=== PATIENT | male | born 1955 | race American Indian/Alaskan Native ===

== ENCOUNTER 2017-11-04 19:31 | Emergency (ER) | payer MEDICARE, OTHER ==
[2017-11-04 19:31] VITALS: BMI 28.3
[2017-11-04] MEDS ORDERED: Aspirin 325 mg EC Tablets PO STA (20:00)
--- NOTE | 2017-11-04 20:00 | C.PDOC ---
History Of Present Illness 62 year old male presents to the ED c/o SOB and chest tightness that started on Wednesday. Patient is speaking in full sentences. Patient denies fever, chill, nausea, vomit, diarrhea. Time Seen by Provider: 11/04/17 19:45 Chief Complaint (Nursing): Shortness Of Breath History Per: Patient History/Exam Limitations: no limitations Onset/Duration Of Symptoms: Days Current Symptoms Are (Timing): Still Present Initiating Event: Other (SOB) Quality: Tightness Current Respiratory Medications: See Home Med List Severity: Moderate Pain Scale Rating Of: 4 Associated Symptoms: Chest Pain Reports Recently: Treated By A Physician Recent travel outside of the [place]: No Additional History Per: Patient Past Medical History Reviewed: Historical Data, Nursing Documentation, Vital Signs Vital Signs: Last Vital Signs Temp 98.5 F 11/04/17 22:33 Pulse 70 11/04/17 22:33 Resp 16 11/04/17 22:33 BP 147/75 11/04/17 22:33 Pulse Ox 97 11/04/17 22:33 - Medical History PMH: CVA (3x), HTN, Hypercholesterolemia, Chronic Kidney Disease Denies: Diabetes Surgical History: Appendectomy, CABG (quadruple) - [facility] Procedures EXERCISE TRMT MUSCULOSK LOW BACK/LE W ASSIST EQUIP (10/02/16) GAIT TRAINING/AMBULAT TREATMENT USING ASSIST EQUIPMENT (10/02/16) HOME MANAGEMENT TREATMENT (10/02/16) ROM & JT MOBILITY TRMT MUSCULOSK LOW BACK/LE W ASSIST EQUIP (10/02/16) Family History: States: Unknown Family Hx - Social History Hx Tobacco Use: No Hx Alcohol Use: No Hx Substance Use: No - Immunization History Hx Tetanus Toxoid Vaccination: No Hx Influenza Vaccination: No Hx Pneumococcal Vaccination: No Review Of Systems Constitutional: Negative for: Fever, Chills Cardiovascular: Positive for: Chest Pain. Negative for: Palpitations Respiratory: Positive for: Shortness of Breath Gastrointestinal: Negative for: Nausea, Vomiting Genitourinary: Negative for: Dysuria Musculoskeletal: Negative for: Back Pain Skin: Negative for: Rash Neurological: Negative for: Weakness, Numbness Psych: Negative for: Anxiety Physical Exam - Physical Exam Appears: Non-toxic, No Acute Distress Skin: Warm, Dry Head: Normacephalic Eye(s): bilateral: Normal Inspection Oral Mucosa: Moist Neck: Supple Chest: Symmetrical Cardiovascular: Rhythm Regular Respiratory: Rales (few), Rhonchi (at the bases), No Wheezing Gastrointestinal/Abdominal: Soft, No Tenderness, No Guarding, No Rebound, Other (RLQ scar for kidney transplant scar) Back: Normal Inspection Extremity: Pedal Edema (Bilateral ), Capillary Refill (< 2 seconds), Other ( right graft with thrill and bruit) Extremity: Bilateral: Atraumatic, Normal Color And Temperature, Normal ROM Pulses: Left Dorsalis Pedis: Normal, Right Dorsalis Pedis: Normal Neurological/Psych: Oriented x3, Normal Speech Gait: Steady ED Course And Treatment - Laboratory Results Result Diagrams: 11/04/17 20:07 11/04/17 20:07 ECG: Interpreted By Me, Viewed By Me ECG Rhythm: Sinus Rhythm (71), Nonspecific Changes O2 Sat by Pulse Oximetry: 99 (ON RA) Pulse Ox Interpretation: Normal Progress Note: Plan: - VBG. - EKG. - Labs. - CXR. - Ecotrin 325 mg PO. - UA. - Blood culture Disposition Discussed With DrRafita: Alexander Cote Comment: accepted the pt on his service and took over the care at 10:48PM Doctor Will See Patient In The: Hospital Counseled Patient/Family Regarding: Studies Performed, Diagnosis - Disposition Disposition: HOSPITALIZED Disposition Time: 19:59 Condition: FAIR Forms: [facility] (South Korean) - POA Present On Arrival: Poor Glycemic Control - Clinical Impression Clinical Impression: Dyspnea, Chest pain, CHF (congestive heart failure) - Scribe Statement The provider has reviewed the documentation as recorded by the Scribe Zeb Samuel All medical record entries made by the Scribe were at my direction and personally dictated by me. I have reviewed the chart and agree that the record accurately reflects my personal performance of the history, physical exam, medical decision making, and the department course for this patient. I have also personally directed, reviewed, and agree with the discharge instructions and disposition.
[2017-11-04] MEDS ORDERED: Aspirin 325 mg EC Tablets PO ONE (20:07)
[2017-11-04 20:10] LABS: BASO # 0.1 K/uL (0.0-0.2); BASO % 0.5 % (0.0-2.0); EOS # 0.1 K/uL (0.0-0.7); EOS % 0.7 % (0.0-4.0); HEMOGLOBIN 13.1 g/dL (12.0-18.0); LYMPH # 0.8 K/uL (1.0-4.3); LYMPH % 7.7 % (20.0-40.0); MEAN CELL VOLUME 81.3 fL (80.0-94.0); MEAN CORPUSCULAR HEMOGLOBIN 27.4 pg (27.0-31.0); MEAN CORPUSCULAR HGB CONC 33.7 g/dL (33.0-37.0); MEAN PLATELET VOLUME 7.9 fL (7.2-11.7); MONO # 1.4 K/uL (0.0-0.8); MONO % 12.3 % (0.0-10.0); NEUT # 8.6 K/uL (1.8-7.0); NEUT % 78.8 % (50.0-75.0); NRBC % 0.1 % (0.0-2.0); PLATELET COUNT 151 K/uL (130-400); RBC 4.78 Mil/uL (4.40-5.90); RED CELL DISTRIBUTION WIDTH 14.5 % (11.5-14.5)
[2017-11-04 20:22] LABS: INR 1.2; PROTHROMBIN TIME 13.5 SECONDS (9.7-12.2)
[2017-11-04 20:25] LABS: ALB/GLOB RATIO 1.2 (1.0-2.1); ALT/SGPT 22 U/L (21-72); AST/SGOT 16 U/L (17-59); BLOOD UREA NITROGEN 17 mg/dL (9-20); CALCIUM 9.1 mg/dl (8.6-10.4); GFR AFRICAN-AMERICAN > 60; GFR NON-AFRICAN AMERICAN 56
[2017-11-04 20:36] LABS: B-TYPE NATRIURETIC PEPTIDE 1900 pg/mL (0-900)
[2017-11-04 20:40] LABS: VENOUS BLOOD GAS BASE EXCESS -2.1 mmol/L (0.0-2.0); VENOUS BLOOD GAS PCO2 31 mmHg (40-60); VENOUS BLOOD GAS PO2 42 mm/Hg (30-55); VENOUS BLOOD PH 7.44 (7.32-7.43)
[2017-11-04 21:12] LABS: LYMPHOCYTE 6 % (20-40); MONOCYTE 7 % (0-10); NEUTROPHIL 87 % (50-75); PLATELET ESTIMATE NORMAL (NORMAL); TOTAL CELLS COUNTED 100
[2017-11-04 22:29] LABS: URINE BILIRUBIN NEGATIVE (NEGATIVE); URINE BLOOD 1+ (NEGATIVE); URINE CLARITY Clear (Clear); URINE COLOR Yellow (YELLOW); URINE GLUCOSE (UA) NORMAL (Normal); URINE LEUKOCYTE ESTERASE 2+ Leu/uL (Negative); URINE PROTEIN 2+ mg/dL (NEGATIVE); URINE UROBILINOGEN NORMAL mg/dL (0.2-1.0)
[2017-11-04 22:34] VITALS: BP 147/75; PULSE 70; RESP 16; TEMP 98.5
[2017-11-04 22:50] VITALS: O2SAT 99
--- NOTE | 2017-11-04 23:03 | CP.PCM.HP ---
History of Present Illness - History of Present Illness History of Present Illness: COMPREHENSIVE HISTORY & PHYSICAL EXAM HPI 60-year-old admitted from the [facility] emergency room with progressive edema of the legs shortness of breath and chest pain. Routine workup in the Emergency Room was negative for acute VA. Patient has history of kidney transplant in 2013 from the living donor, son, prior to that patient was on dialysis with intact shunt. Patient also has a frequent history of CVA with right-sided weakness. Patient also has a history of CABG with 3-4 vessel bypass time and place unknown. Patient was given Lasix 40 mg twice a day as outpatient without any improvement of the edema of the legs PAST HIST. PERSONAL HIST: Smoking. N Alcohol. N Allergy N Travel_- . FAMILY HIST : ROS : Constitutional: Negative for weight change, chills, night sweats, fatigue and usage of assist device. Eyes: Negative for redness, swelling, itching, discharge, vision changes, blurry vision, double vision, glaucoma, cataracts, Ears: Negative for hearing loss, ringing, , tinnitus, vertigo Nose: Negative for rhinorrhea, stuffiness, sniffing, itching, postnasal drip, discoloration, nasal congestion and epistaxis. Throat: Negative for throat clearing, sore throat, hoarseness, difficulty swallowing and difficulty speaking. Respiratory: Negative for cough, chest tightness, sputum or phlegm, chronic cough, hemoptysis, wheezing, snoring at night, pleuritic chest pain and daytime somnolence. Cardiovascular: chest pain at rest shortness of breath with edema of the legs orthopnea and PND. Neurology: Negative for irritability, muscle weakness, numbness and tingling, seizures, tremors, migraines, slurred speech, syncope, memory loss, mood changes , recurrent headaches Gastrointestinal: Negative for difficulty swallowing, diarrhea, constipation, black stools, rectal bleeding, nausea, flatulence, reflux, poor appetite, changes in bowel habits, abdominal pain Genitourinary: Negative for frequent urination, hematuria, discharge, incontinence, urinary retention, frequent UTI, Psychiatric: Negative for depression, anxiety/panic, suicidal tendencies, Musculoskeletal: Negative for swollen joints, back pain, , neck pain, morning stiffness of joints, . Skin: Negative for rash, ulcers, itching, dry skin and pigmented lesions. P/E: Constitutional: Appears stated age and in no apparent distress. Head: Normocephalic. Ears: External ear canals patent without inflammation. Tympanic membranes intact with normal light reflex and landmark. Eyes: Pupils are central, bilaterally equal, symmetrical and reacts to light with normal movements and no icterus or pallor. Nose: External nares are patent. Mucosa is pink Mouth-Throat: Good general appearance and condition. No post-pharyngeal/oropharyngeal erythema and tonsillar hypertrophy. Good dental hygiene. Neck-Lymphatic: Neck is supple with normal ROM, no thyromegaly, lymph nodes or masses. JVD is normal with no carotid bruit. Lungs: Clear to percussion and auscultation with bilateral normal air entry. Cardiovascular: S1 and S2 are normal with no murmurs GI Exam: No hepatomegaly. Abdomen is soft and non-tender. No Organomegaly , masses or hernias are evident and bowel sounds are normal and active. Neurology: Higher function and all cranial nerves intact, with no gross sensory deficit. Superficial and deep reflexes are normal with downwards planters. No cerebellar deficit with normal gait. Weakness on the right side. Musculoskeletal: No tender spots with normal curvature of the spine with no swelling or restricted ROM of the small and large joints. Extremities: Homans sign absent. Intact pulses with pitting edema, calf tenderness or skin color changes. Skin: No rash, eruptions or abnormal skin pigmentation LAB/RADIOLOGY: ASSESMENT : Congestive heart failure, etiology to be determined, possible secondary to underlying coronary artery disease and bypass. Renal transplant functioning normal on immunosuppression. Hypertension. Plan: See orders Present on Admission - Present on Admission Any Indicators Present on Admission: No Past Patient History - Past Medical History & Family History Past Medical History?: Yes - Past Social History Smoking Status: Former Smoker - CARDIAC Hx Hypercholesterolemia: Yes Hx Hypertension: Yes - NEUROLOGICAL HX Cerebrovascular Accident: Yes - RENAL Hx Chronic Kidney Disease: Yes - MUSCULOSKELETAL/RHEUMATOLOGICAL Hx Falls: No - PSYCHIATRIC Hx Substance Use: No - SURGICAL HISTORY Hx Appendectomy: Yes Hx Coronary Artery Bypass Graft: Yes (quadruple) - ANESTHESIA Hx Anesthesia: Yes Hx Anesthesia Reactions: No Meds Allergies/Adverse Reactions: Allergies Allergy/AdvReac Type Severity Reaction Status Date / Time No Known Allergies Allergy Verified 11/04/17 19:35 Results - Vital Signs Recent Vital Signs: Last Vital Signs Temp 98.5 F 11/04/17 22:33 Pulse 70 11/04/17 22:33 Resp 16 11/04/17 22:33 BP 147/75 11/04/17 22:33 Pulse Ox 99 11/04/17 22:50 - Labs Result Diagrams: 11/04/17 20:07 11/04/17 20:07 Labs: Laboratory Results - last 24 hr 11/04/17 11/04/17 11/04/17 20:07 20:07 20:07 WBC 11.0 H RBC 4.78 Hgb 13.1 D Hct 38.9 MCV 81.3 D MCH 27.4 MCHC 33.7 RDW 14.5 Plt Count 151 MPV 7.9 Neut % (Auto) 78.8 H Lymph % (Auto) 7.7 L Morgan % (Auto) 12.3 H Eos % (Auto) 0.7 Baso % (Auto) 0.5 Neut # (Auto) 8.6 H Lymph # (Auto) 0.8 L Morgan # (Auto) 1.4 H Eos # (Auto) 0.1 Baso # (Auto) 0.1 Neutrophils % (Manual) 87 H Lymphocytes % (Manual) 6 L Monocytes % (Manual) 7 Platelet Estimate Normal PT 13.5 H INR 1.2 APTT 33 pO2 VBG pH VBG pCO2 VBG HCO3 VBG Total CO2 VBG O2 Sat (Calc) VBG Base Excess VBG Potassium Glucose Lactate Sodium 139 Potassium 4.2 Chloride 106 Carbon Dioxide 20 L Anion Gap 17 BUN 17 Creatinine 1.3 Est GFR ( Amer) > 60 Est GFR (Non-Af Amer) 56 Random Glucose 120 H Calcium 9.1 Total Bilirubin 1.9 H AST 16 L ALT 22 Alkaline Phosphatase 81 Troponin I 0.0590 NT-Pro-B Natriuret Pep 1900 H Total Protein 7.3 Albumin 4.0 Globulin 3.3 Albumin/Globulin Ratio 1.2 Venous Blood Potassium Urine Color Urine Clarity Urine pH Ur Specific [place] Urine Protein Urine Glucose (UA) Urine Ketones Urine Blood Urine Nitrate Urine Bilirubin Urine Urobilinogen Ur Leukocyte Esterase Urine WBC (Auto) Urine RBC (Auto) 11/04/17 11/04/17 20:35 21:55 WBC RBC Hgb Hct MCV MCH MCHC RDW Plt Count MPV Neut % (Auto) Lymph % (Auto) Morgan % (Auto) Eos % (Auto) Baso % (Auto) Neut # (Auto) Lymph # (Auto) Morgan # (Auto) Eos # (Auto) Baso # (Auto) Neutrophils % (Manual) Lymphocytes % (Manual) Monocytes % (Manual) Platelet Estimate PT INR APTT pO2 42 VBG pH 7.44 H VBG pCO2 31 L VBG HCO3 22.8 VBG Total CO2 22.1 VBG O2 Sat (Calc) 82.4 H VBG Base Excess -2.1 L VBG Potassium 3.9 Glucose 117 H Lactate 0.7 Sodium 137.0 Potassium Chloride 109.0 H Carbon Dioxide Anion Gap BUN Creatinine Est GFR ( Amer) Est GFR (Non-Af Amer) Random Glucose Calcium Total Bilirubin AST ALT Alkaline Phosphatase Troponin I NT-Pro-B Natriuret Pep Total Protein Albumin Globulin Albumin/Globulin Ratio Venous Blood Potassium 3.9 Urine Color Yellow Urine Clarity Clear Urine pH 6.0 Ur Specific [place] 1.018 Urine Protein 2+ H Urine Glucose (UA) Normal Urine Ketones Negative Urine Blood 1+ H Urine Nitrate Negative Urine Bilirubin Negative Urine Urobilinogen Normal Ur Leukocyte Esterase 2+ H Urine WBC (Auto) 30 H Urine RBC (Auto) 7 H
--- NOTE | 2017-11-05 07:28 | RAD ---
PROCEDURE: CHEST RADIOGRAPH, 1 VIEW HISTORY: SOB COMPARISON: Portable chest 04/29/2013. FINDINGS: LUNGS: No definite infiltrate bilaterally. PLEURA: No pneumothorax or pleural fluid seen. CARDIOVASCULAR: Cardiomegaly is reiterated with sternotomy wires and mediastinal surgical status post CABG previously. Mild pulmonary vascular congestion is noted. OSSEOUS STRUCTURES: No significant abnormalities. VISUALIZED UPPER ABDOMEN: Normal. OTHER FINDINGS: None. IMPRESSION: Mild CHF is suggested. No acute infiltrate bilaterally.
[2017-11-05] MEDS ORDERED: NIFEdipine 90 mg ER Tab PO SCH (10:00)
[2017-11-05] MEDS ORDERED: Magnesium Oxide 400 mg Tab UD PO SCH (10:00)
--- NOTE | 2017-11-06 02:47 | CARD ---
APPROVED REPORT EKG Measurement Heart [id number] <Conclusion> Sinus rhythm with premature supraventricular complexes T wave abnormality, consider lateral ischemia Abnormal ECG
== END 2017-11-05 00:05 | disposition left against medical advice (07) ==
LOC: C.ER 19:31
DX: I50.9 Heart failure, unspecified (principal); R07.9 Chest pain, unspecified; R06.00 Dyspnea, unspecified; E78.00 Pure hypercholesterolemia, unspecified; I12.9 Hypertensive chronic kidney disease with stage 1 through stage 4 chronic kidney disease, or unspecified chronic kidney disease; N18.9 Chronic kidney disease, unspecified
CPT/HCPCS: 71045; 80053; 81001; 82803; 83880; 84484; 85025; 85610; 85730; 87040; 93005; 96374; 99285; J1940

== ENCOUNTER 2018-09-15 09:59 | Emergency (ER) | payer MEDICARE, OTHER ==
[2018-09-15 09:59] VITALS: BMI 28.3
--- NOTE | 2018-09-15 13:56 | RAD ---
HISTORY: cough/fever COMPARISON: Chest x-ray performed 01/31/18 TECHNIQUE: Chest, one view. FINDINGS: LUNGS: Interstitial prominence may reflect infection or edema. Right hilar prominence. Please note that chest x-ray has limited sensitivity for the detection of pulmonary masses. PLEURA: No significant pleural effusion identified. No definite pneumothorax . CARDIOVASCULAR: Median sternotomy wires with evidence of CABG. Cardiomegaly. OSSEOUS STRUCTURES: Degenerative changes. VISUALIZED UPPER ABDOMEN: Unremarkable. OTHER FINDINGS: None. IMPRESSION: Median sternotomy wires with evidence of CABG. Marked cardiomegaly. Interstitial prominence may reflect infection or edema. Right hilar prominence.
[2018-09-15 14:12] VITALS: RESP 17; TEMP 98.6
[2018-09-15 14:17] LABS: BASO % 0.7 % (0.0-2.0); EOS # 0.2 K/uL (0.0-0.7); EOS % 2.6 % (0.0-4.0); HEMOGLOBIN 12.3 g/dL (12.0-18.0); LYMPH % 14.9 % (20.0-40.0); MEAN CELL VOLUME 82.4 fL (80.0-94.0); MEAN CORPUSCULAR HEMOGLOBIN 27.2 pg (27.0-31.0); MEAN PLATELET VOLUME 8.5 fL (7.2-11.7); MONO # 0.9 K/uL (0.0-0.8); MONO % 12.3 % (0.0-10.0); NEUT # 4.8 K/uL (1.8-7.0); NEUT % 69.5 % (50.0-75.0); NRBC % 0.1 % (0.0-2.0); RBC 4.53 Mil/uL (4.40-5.90); RED CELL DISTRIBUTION WIDTH 16.1 % (11.5-14.5); WHITE BLOOD COUNT 6.9 K/uL (4.8-10.8)
[2018-09-15 14:27] LABS: INR 1.2; PROTHROMBIN TIME 12.8 SECONDS (9.7-12.2)
[2018-09-15 14:36] LABS: ALB/GLOB RATIO 1.6 (1.0-2.1); ALBUMIN 3.6 g/dL (3.5-5.0); CALCIUM 9.2 mg/dl (8.6-10.4)
[2018-09-15 14:43] LABS: URINE BILIRUBIN NEGATIVE (NEGATIVE); URINE BLOOD TRACE (NEGATIVE); URINE CLARITY Clear (Clear); URINE COLOR YELLOW (YELLOW); URINE GLUCOSE (UA) NEGATIVE (Normal); URINE LEUKOCYTE ESTERASE NEGATIVE Leu/uL (Negative); URINE PROTEIN > 300 mg/dL (NEGATIVE); URINE UROBILINOGEN 0.2 mg/dL (0.2-1.0)
[2018-09-15 14:46] LABS: CK-MB 0.99 ng/mL (0.0-3.38); TROPONIN I 0.04 ng/mL (0.00-0.120)
[2018-09-15 15:06] LABS: SQUAMOUS EPITHIAL 1 /hpf (0-5); URINE HYALINE CAST 1 /lpf (0-2)
--- NOTE | 2018-09-15 15:27 | C.PDOC ---
History Of Present Illness 62 year old male presents to ED with complaint of subjective fever, chills, body aches, cough, nasal congestion for the past 2 days. Patient also notes bilateral lower extremity edema. Patient has a PMHx of chronic renal insufficien cy and had a kidney transplant in 2014. Patient denies nausea, vomiting, diarrhea, and abdominal pain. Time Seen by Provider: 09/15/18 11:29 Chief Complaint (Nursing): Cough, Cold, Congestion History Per: Patient History/Exam Limitations: no limitations Onset/Duration Of Symptoms: Days (2) Current Symptoms Are (Timing): Still Present Location Of Pain: Diffuse Myalgias Associated Symptoms: Fever, Chills, Cough, Nasal Congestion, Other (bilateral lower extremity edema) Past Medical History Reviewed: Historical Data, Nursing Documentation, Vital Signs Vital Signs: Last Vital Signs Temp 98.6 F 09/15/18 14:11 Pulse 73 09/15/18 14:11 Resp 17 09/15/18 14:11 BP 112/52 L 09/15/18 14:11 Pulse Ox 98 09/15/18 14:11 - Medical History PMH: CVA (3x), HTN, Hypercholesterolemia, Chronic Kidney Disease Denies: Diabetes Surgical History: Appendectomy, CABG (quadruple) - [facility] Procedures EXERCISE TRMT MUSCULOSK LOW BACK/LE W ASSIST EQUIP (10/02/16) GAIT TRAINING/AMBULAT TREATMENT USING ASSIST EQUIPMENT (10/02/16) HOME MANAGEMENT TREATMENT (10/02/16) ROM & JT MOBILITY TRMT MUSCULOSK LOW BACK/LE W ASSIST EQUIP (10/02/16) Family History: States: Unknown Family Hx - Social History Hx Tobacco Use: No Hx Alcohol Use: No Hx Substance Use: No - Immunization History Hx Tetanus Toxoid Vaccination: No Hx Influenza Vaccination: No Hx Pneumococcal Vaccination: No Review Of Systems Constitutional: Positive for: Fever, Chills, Malaise. Negative for: Weakness ENT: Negative for: Nose Congestion Respiratory: Positive for: Cough Gastrointestinal: Negative for: Nausea, Vomiting, Abdominal Pain, Diarrhea Musculoskeletal: Positive for: Other (bilateral lower extremity edema) Neurological: Negative for: Weakness, Numbness, Dizziness Physical Exam - Physical Exam Appears: Well, Non-toxic, No Acute Distress Skin: Normal Color, Warm, Dry Head: Atraumatic, Normacephalic Neck: Normal ROM, Supple Chest: Symmetrical, No Deformity Cardiovascular: Rhythm Regular, No Murmur Respiratory: No Accessory Muscle Use, No Rales, No Rhonchi, Wheezing (bilaterally) Gastrointestinal/Abdominal: Soft, No Tenderness Extremity: Pedal Edema, Capillary Refill (<2 seconds) Neurological/Psych: Oriented x3, Normal Speech, Normal Cognition ED Course And Treatment - Laboratory Results Result Diagrams: 09/15/18 14:13 09/15/18 14:13 Lab Results: PT 12.8 SECONDS (9.7-12.2) H 09/15/18 14:13 INR 1.2 09/15/18 14:13 APTT 40 SECONDS (21-34) H 09/15/18 14:13 Troponin I 0.0400 ng/mL (0.00-0.120) 09/15/18 14:13 NT-Pro-B Natriuret Pep 1800 pg/mL (0-900) H 09/15/18 14:13 Total Bilirubin 0.5 mg/dL (0.2-1.3) 09/15/18 14:13 AST 26 U/L (17-59) 09/15/18 14:13 ALT 23 U/L (21-72) 09/15/18 14:13 Alkaline Phosphatase 89 U/L (38-126) 09/15/18 14:13 Total Protein 5.8 g/dL (6.3-8.3) L 09/15/18 14:13 Albumin 3.6 g/dL (3.5-5.0) 09/15/18 14:13 Globulin 2.3 gm/dL (2.2-3.9) 09/15/18 14:13 Albumin/Globulin Ratio 1.6 (1.0-2.1) 09/15/18 14:13 Urine Color Yellow (YELLOW) 09/15/18 14:13 Urine Clarity Clear (Clear) 09/15/18 14:13 Urine pH 6.0 (5.0-8.0) 09/15/18 14:13 Ur Specific [place] > 1.030 (1.003-1.030) H 09/15/18 14:13 Urine Protein > 300 mg/dL (NEGATIVE) 09/15/18 14:13 Urine Glucose (UA) Negative mg/dL (Normal) 09/15/18 14:13 Urine Ketones Negative mg/dL (NEGATIVE) 09/15/18 14:13 Urine Blood Trace (NEGATIVE) 09/15/18 14:13 Urine Nitrate Negative (NEGATIVE) 09/15/18 14:13 Urine Bilirubin Negative (NEGATIVE) 09/15/18 14:13 Urine Urobilinogen 0.2 mg/dL (0.2-1.0) 09/15/18 14:13 Ur Leukocyte Esterase Negative Corinne/uL (Negative) 09/15/18 14:13 Urine WBC (Auto) 3 /hpf (0-5) 09/15/18 14:13 Urine RBC (Auto) 2 /hpf (0-3) 09/15/18 14:13 Ur Squamous Epith Cells 1 /hpf (0-5) 09/15/18 14:13 Hyaline Casts 1 /lpf (0-2) 09/15/18 14:13 O2 Sat by Pulse Oximetry: 98 (in RA) - Other Rad CXR X-Ray: Interpreted by Me, Viewed By Me Interpretation: Accession No. : [id number]. Patient Name / ID : ANYA HENDERSON / [id number]. Exam Date : 09/15/2018 13:39:20 ( Approved ). Study Comment : Sex / Age : M / 62Y. Creator : Ladonna Rehman MD. Dictator : Ladonna Rehman MD. Mold Hoister : Sheet Metal Contractor : Ladonna Rehman MD. Ap prover2 : Report Date : 09/15/2018 13:52:56. My Comment : . HISTORY: cough/fever. COMPARISON: Chest x-ray performed 01/31/18. TECHNIQUE: Chest, one view. FINDINGS: LUNGS: Interstitial prominence may reflect infection or edema. Right hilar prominence. Please note that chest x-ray has limited sensitivity for the detection of pulmonary masses. PLEURA: No significant pleural effusion identified. No definite pneumothorax . CARDIOVASCULAR: Median sternotomy wires with evidence of CABG. Cardiomegaly. OSSEOUS STRUCTURES: Degenerative changes. VISUALIZED UPPER ABDOMEN: Unremarkable. OTHER FINDINGS: None. IMPRESSION: Median sternotomy wires with evidence of CABG. Marked cardiomegaly. Interstitial prominence may reflect infection or edema. Right hilar prominence. Progress Note: Labs ordered with CMP, CBC, blood culture, urine culture, flu a/b, and UA. CXR ordered for patient. Patient given Tylenol PO. BNP elevated. Flu negative. Patient found to have s/s of CHF, his renal functiions test is worse than before, CXR with questionable pneumonia. Patient was offered an admission, but he refused. One dose of Rocephin IV and Zithromax po given. Patient sts he has something very important to be done at home and he'll come back to the hospital. Risks of leaving AMA were explained. Patient verbalized understanding. He had an opportunity to ask questions. Patient signed AMA form and left. Disposition - Disposition Disposition: AGAINST MEDICAL ADVICE Disposition Time: 16:02 Condition: SERIOUS Additional Instructions: Follow up with your PMD/admissions counselor BAM. Return to ED if you change your mind. Return to ED immediately if feel worse. Prescriptions: Azithromycin [Zithromax] 250 mg PO DAILY #4 tab Instructions: Heart Failure, Adult (DC), Pneumonia, Adult (DC), Chronic Kidney Disease Forms: [employer] (Portuguese) - Clinical Impression Clinical Impression: Pneumonia, CHF (congestive heart failure), Renal insufficiency - PA / FORDER OPERATOR / Resident Statement MD/DO has reviewed & agrees with the documentation as recorded. (Charlene Curran) - Scribe Statement The provider has reviewed the documentation as recorded by the Scribe (Charlene Curran) All medical record entries made by the Scribe were at my direction and pers onally dictated by me. I have reviewed the chart and agree that the record accurately reflects my personal performance of the history, physical exam, medical decision making, and the department course for this patient. I have also personally directed, reviewed, and agree with the discharge instructions and disposition.
[2018-09-15 16:31] VITALS: BP 105/78; PULSE 84
[2018-09-15 19:00] VITALS: O2SAT 98
--- NOTE | 2018-09-18 19:42 | CARD ---
APPROVED REPORT Date of service: 09/15/2018 EKG Measurement Heart [id number] <Conclusion> Sinus bradycardia with premature atrial complexes T wave abnormality, consider inferolateral ischemia Prolonged QT Abnormal ECG
== END 2018-09-15 16:31 | disposition left against medical advice (07) ==
LOC: C.ER 09:59
DX: J18.9 Pneumonia, unspecified organism (principal); I50.9 Heart failure, unspecified; N18.9 Chronic kidney disease, unspecified; Z94.0 Kidney transplant status
CPT/HCPCS: 71045; 80053; 81001; 82550; 82553; 83735; 83880; 84484; 85025; 85610; 85730; 87040; 87086; 87804; 93005; 96374; 99285; J0696

== ENCOUNTER 2018-10-18 15:52 | Emergency (ER) | payer MEDICARE, OTHER ==
[2018-10-18 15:53] VITALS: BMI 28.3
[2018-10-18 16:10] VITALS: BP 151/77; PULSE 67; RESP 18; TEMP 98.4; O2SAT 97
[2018-10-18] MEDS ORDERED: Tdap Vaccine 0.5 ml Vial (10-64 yrs) IM ONE ×2 (16:55→17:12)
--- NOTE | 2018-10-18 16:57 | C.PDOC ---
History Of Present Illness Patient is a 63 year old male, with a PMHx of kidney transplant on anti- rejection medications, who presents to the ED for evaluation of his left foot after he stepped on a sukhdeep nail at 14:30 today. Patient states that the nail went through his shoe and he feels throbbing pain in the area of puncture. Tetanus shot not UTD. He denies any weakness or numbness in the area of injury. Time Seen by Provider: 10/18/18 16:25 Chief Complaint (Nursing): Abnormal Skin Integrity History Per: Patient History/Exam Limitations: no limitations Onset/Duration Of Symptoms: Hrs Current Symptoms Are (Timing): Still Present Quality Of Symptoms: Painful Recent travel outside of the [place]: No Additional History Per: Patient Past Medical History Reviewed: Historical Data, Nursing Documentation, Vital Signs Vital Signs: Last Vital Signs Temp 98.4 F 10/18/18 16:06 Pulse 67 10/18/18 16:06 Resp 18 10/18/18 16:06 BP 151/77 H 10/18/18 16:06 Pulse Ox 97 10/18/18 16:06 Primary Care Provider: Moises Fan - Medical History PMH: CVA (3x), HTN, Hypercholesterolemia, Chronic Kidney Disease Denies: Diabetes Surgical History: Appendectomy, CABG (quadruple) - [facility] Procedures EXERCISE TRMT MUSCULOSK LOW BACK/LE W ASSIST EQUIP (10/02/16) GAIT TRAINING/AMBULAT TREATMENT USING ASSIST EQUIPMENT (10/02/16) HOME MANAGEMENT TREATMENT (10/02/16) ROM & JT MOBILITY TRMT MUSCULOSK LOW BACK/LE W ASSIST EQUIP (10/02/16) Family History: States: Unknown Family Hx - Social History Hx Tobacco Use: No Hx Alcohol Use: No Hx Substance Use: No - Immunization History Hx Tetanus Toxoid Vaccination: No Hx Influenza Vaccination: No Hx Pneumococcal Vaccination: No Review Of Systems Musculoskeletal: Positive for: Foot Pain (left ) Neurological: Negative for: Weakness, Numbness Physical Exam - Physical Exam Appears: Non-toxic, No Acute Distress Skin: Warm, Dry Head: Atraumatic, Normacephalic Eye(s): bilateral: Normal Inspection Oral Mucosa: Moist Neck: Normal ROM Chest: Symmetrical Respiratory: No Accessory Muscle Use Extremity: Normal ROM, No Pedal Edema, Capillary Refill (< 2 sec), Other (left foot punture wound on the distal plantar region) Pulses: Left Dorsalis Pedis: Normal, Right Dorsalis Pedis: Normal Neurological/Psych: Oriented x3, Normal Speech, Normal Motor, Normal Sensation Gait: Steady ED Course And Treatment O2 Sat by Pulse Oximetry: 97 (on RA ) Pulse Ox Interpretation: Normal Medical Decision Making Medical Decision Making: Plan: Cipro 500mg PO Tetanus Wound was cleansed and sterile dressing applied. Disposition - Disposition Referrals: Moises Fan MD [Medical Doctor] - Disposition: HOME/ ROUTINE Disposition Time: 16:57 Condition: GOOD Additional Instructions: Follow up with the medical doctor within 1-2 days. Return if worsened. Prescriptions: Ciprofloxacin [Cipro] 1 tab PO BID #14 tab Instructions: Wound Care (DC) Forms: [employer] (Kosovan) - Clinical Impression Clinical Impression: Puncture wound - PA / MOLDED GOODS SPOT PICKER / Resident Statement MD/DO has examined the patient and agrees with the treatment plan. - Scribe Statement The provider has reviewed the documentation as recorded by the Cruz Peres All medical record entries made by the Scribe were at my direction and personally dictated by me. I have reviewed the chart and agree that the record accurately reflects my personal performance of the history, physical exam, medical decision making, and the department course for this patient. I have also personally directed, reviewed, and agree with the discharge instructions and disposition.
== END 2018-10-18 17:22 | disposition home or self-care (01) ==
LOC: C.ER 15:52
DX: S91.332A Puncture wound without foreign body, left foot, initial encounter (principal); W45.0XXA Nail entering through skin, initial encounter